=== PATIENT | female | born 2000 | race African-American/Black ===

== ENCOUNTER → 2019-11-29 | Outpatient (CLI) | payer OTHER ==
--- NOTE | 2019-11-29 15:02 | RADIOLOGY REPORT (SQ) ---
EXAM DESCRIPTION: U/S EXTREMITY NONVASCULAR LTD COMPLETED DATE/TIME: 11/29/2019 2:16 pm REASON FOR STUDY: MASS OF RIGHT AXILLA (R22.31) R22.31 LOCALIZED SWELLING, MASS AND LUMP, RIGHT UPP ER LIMB COMPARISON: None. TECHNIQUE: Dynamic and static grayscale images acquired of the localized site of clinical concern an d recorded on PACS. Additional selected color Doppler and spectral images recorded. SITE OF CONCERN: Right axilla. LIMITATIONS: None. FINDINGS: No soft tissue masses. No cystic lesions or fluid collection. Incidental 1 cm lymph node . IMPRESSION: NO SONOGRAPHIC ABNORMALITY IN THE RIGHT AXILLA. TECHNICAL DOCUMENTATION: JOB ID: [id number] [employer]- All Rights Reserved Reading location - IP/workstation name: [email or web address]
== END ==
LOC: RAD 12:41
PROVIDERS: ATTEND Family Medicine
DX: R22.31 Localized swelling, mass and lump, right upper limb (principal)
CPT/HCPCS: 76882